=== PATIENT | male | born 1985 | race Caucasian/White ===

== ENCOUNTER 2021-09-11 11:53 | Emergency (ER) | payer SELFPAY ==
[2021-09-11 12:02] VITALS: BP 134/81; PULSE 94; RESP 16; TEMP 36.8; O2SAT 100
--- NOTE | 2021-09-11 12:21 | ED.MALEGU ---
HPI - Male Genitourinary General Chief complaint: Urogenital-Male Stated complaint: STD Test Time Seen by Provider: 09/11/21 12:21 Source: patient History of Present Illness HPI Narrative: Patient presents requesting STD screening and treatment for urinary tract infection. Patient denies any exposure to his knowledge for any STDs. Patient denies any new partners. Patient states he has had the same symptoms in the past and had all negative STD screening and was treated for urinary tract infection and his symptoms went away. Patient denies any flank pain no gross hematuria no abdominal pain. Patient states he has a clearish discharge and pain with urination. Patient denies any lesions or any testicle pain. MD Complaint: penile discharge and dysuria Related Data Allergies Allergy/AdvReac Type Severity Reaction Status Date / Time No Known Allergies Allergy Verified 09/11/21 12:07 Review of Systems Review of Systems: CONSTITUTIONAL: Denies fever, chills, or sweats. EYES: Denies visual changes, redness, or discharge. ENT: Denies rhinorrhea, congestion, sore throat, or otalgia. CARDIOVASCULAR: Denies chest pain, palpitations, or edema. RESPIRATORY: Denies cough or dyspnea. GASTROINTESTINAL: Denies abdominal pain, nausea, vomiting, or diarrhea. GENITOURINARY: Denies dysuria or hematuria. SKIN: Denies rash or itching. MUSCULOSKELETAL: Denies back pain, joint pain, or myalgia. NEUROLOGIC: Denies headache, numbness, or weakness. PSYCHIATRIC: Denies anxiety or depression. Allergic/Immunologic: Comments: At time of signature, agree with nursing past medical, surgical, social and family history. There is no relevant family history pertinent to the presenting complaint Exam Narrative: GENERAL: Well-appearing, well-nourished, and in no acute distress. HEAD: Normocephalic, atraumatic. EYES: PERRLA and EOMI. ENT: Nares clear, no rhinorrhea or epistaxis. Mucous membranes moist. NECK: Supple. CHEST: Clear to auscultation. No respiratory distress. HEART: Regular rate and rhythm. No murmur heard. Normal peripheral pulses. ABDOMEN: Soft, nontender, nondistended, normal active bowel sounds. EXTREMITIES: Normal range of motion. No edema. SKIN: Warm, dry, no rash. NEURO: No focal deficits. Alert and oriented x3. [place] Coma Scale Eye Opening: Spontaneous 4 Paul Coma Scale Motor: Obeys Commands 6 Paul Coma Scale Verbal: Oriented 5 Paul Coma Scale Total 15 Course Course Level of Care: [facility] Visit Vital Signs Vital signs: Vital Signs Temperature 36.8 C 09/11/21 12:02 Pulse Rate 94 09/11/21 12:02 Respiratory Rate 16 09/11/21 12:02 Blood Pressure 134/81 09/11/21 12:02 Pulse Oximetry 100 09/11/21 12:02 Temperature 36.8 C 09/11/21 12:02 Pulse Rate 94 09/11/21 12:02 Respiratory Rate 16 09/11/21 12:02 Blood Pressure 134/81 09/11/21 12:02 Pulse Oximetry 100 09/11/21 12:02 Addressed elevated BP today. Today's blood pressure higher than recommended range. Discussed importance of follow -up with PCP and possible vp medical effects/cardiovascular events related to HTN. Currently patient denies headache, dizziness, vision changes, CP or shortness of breath. Critical dx considered and discussed with pt. Educated patient on red flag s/s and to go to ED if s/s occur. Discussed with pt when to return to [facility] or primary care provider. Pt gave verbal undertstanding, all questions were answered, and pt was agreeable to plan DISCUSSED EVALUATION AND TEST RESULTS IN THE [facility]. PATIENT/FAMILY UNDERSTAND IMPORTANCE OF CLOSE OBSERVATION AND RETURNING OR GOING TO THE EMERGENCY ROOM IF ANY WORSENING CONDITION. . Discussed with patient concerns for urinary tract infection. Patient would like to be treated for urinary tract infection at this time and if any of the STD testing is positive he would like to be treated at that time. Discussed red flags when to go to ER. Patient agreeable with plan o
== END 2021-09-11 12:32 | disposition home or self-care (01) ==
PROVIDERS: Emergency Provider Nurse Practitioner Family
DX: N39.0 Urinary tract infection, site not specified (principal); A54.9 Gonococcal infection, unspecified
CPT/HCPCS: 81003; 87086; 87491; 87591; 87661; 99213; G0463